=== PATIENT | male | born 1940 | race Caucasian/White ===

== ENCOUNTER 2024-11-23 16:05 | Inpatient (IN) | payer BC ==
[~2024-11-23] VITALS: Ht 175.3 cm; Wt 68.0 kg
[2024-11-23] MEDS ORDERED: EPOE40007 SQ (16:31)
[2024-11-23] MEDS ORDERED: ASCO500C18 GT (16:31)
[2024-11-23] MEDS ORDERED: LIDOCAINE PATCH 5% TD (16:31)
[2024-11-23] MEDS ORDERED: HEPA500034 SQ (16:31)
[2024-11-23] MEDS ORDERED: ZINC1CAP2 GT (16:31)
[2024-11-23] MEDS ORDERED: NA P133E RC (16:31)
[2024-11-23] MEDS ORDERED: PANT40TA49 GT (16:31)
[2024-11-23] MEDS ORDERED: ASPI-612 GT (16:31)
[2024-11-23] MEDS ORDERED: ALBU2.5V13 NEB (16:31)
[2024-11-23] MEDS ORDERED: MIDO5TAB5 GT (16:31)
[2024-11-23] MEDS ORDERED: MAGN400O6 GT (16:31)
[2024-11-23] MEDS ORDERED: FURO40TA5 GT (16:31)
[2024-11-23] MEDS ORDERED: ACET325C7 GT (16:31)
[2024-11-23] MEDS ORDERED: ONDA-104 GT (16:31)
[2024-11-23] MEDS ORDERED: LORA-259 GT (16:31)
[2024-11-23] MEDS ORDERED: ACET-2605 GT (16:31)
[2024-11-23] MEDS ORDERED: SENN8.6T19 GT (16:31)
[2024-11-23] MEDS ORDERED: BISA10SU61 RC (16:31)
[2024-11-23] MEDS ORDERED: MULT-213 GT (16:31)
[2024-11-23] MEDS ORDERED: GUAI100S9 GT (16:31)
[2024-11-23] MEDS ORDERED: AMOX125S56 GT (16:31)
[2024-11-23] MEDS ORDERED: CHOL500062 GT (16:31)
[2024-11-23] MEDS ORDERED: ATOR40TA GT (16:31)
[2024-11-23 16:33] LABS: BASOPHILS % (AUTO) 0.5 % (0.0-2.0); EOSINOPHILS # (AUTO) 0.1 K/uL (0.0-0.7); EOSINOPHILS % (AUTO) 1.3 % (0.0-7.0); HEMATOCRIT 23.7 % (36.7-47.1); LYMPHOCYTES # (AUTO) 0.3 K/uL (0.8-4.8); LYMPHOCYTES % (AUTO) 8.5 % (20.5-51.5); MEAN CORPUSCULAR HEMOGLOBIN 36.5 uug (23.8-33.4); MEAN CORPUSCULAR HGB CONC 34 g/dL (32.5-36.3); MONOCYTES # (AUTO) 0.2 K/uL (0.1-1.30); MONOCYTES % (AUTO) 5.9 % (0.0-11.0); NEUTROPHILS # (AUTO) 3.3 K/uL (1.8-8.9); NEUTROPHILS % (AUTO) 83.8 % (38.5-71.5); PLATELET COUNT (AUTO) 227 K/uL (152-348); RED CELL DISTRIBUTION WIDTH 25.6 % (12.1-16.2); WHITE BLOOD COUNT (AUTO) 3.9 K/uL (3.6-10.2)
[2024-11-23 16:36] LABS: DIFFERENTIAL COMMENT 1; RED BLOOD CELL COUNT(AUTO) 2.19 MIL/uL (4.06-5.63)
[2024-11-23 16:42] LABS: CALCIUM 8.7 mg/dL (8.5-10.1); CARBON DIOXIDE 29 mmol/L (21-32); CHLORIDE 97 mmol/L (98-107); CREATININE 2.3 mg/dL (0.6-1.3); GLUCOSE 130 mg/dL (74-106); POTASSIUM 4.1 mmol/L (3.5-5.1); SODIUM SERUM 136 mmol/L (136-145); UREA NITROGEN, BLOOD 59 mg/dL (7-18)
[2024-11-23 16:51] LABS: LACTIC ACID 3.6 mmol/L (0.4-2.0)
[2024-11-23 16:55] LABS: ALANINE AMINOTRANSFERASE 35 U/L (16-63); ALBUMIN 1.8 g/dL (3.4-5.0); ALKALINE PHOSPHATASE 257 U/L (50-136); ASPARTATE AMINOTRANSFERASE 89 U/L (15-37); BILIRUBIN,DIRECT 0.1 mg/dL (0.0-0.2); BILIRUBIN,TOTAL 0.3 mg/dL (0.2-1.0); NT-PRO BNP 5460 pg/mL (0-125); TOTAL PROTEIN, SERUM 6.5 g/dL (6.4-8.2)
[2024-11-23 17:51] LABS: ABG BASE EXCESS 4.4 mmol/L (-2.0-3.0); ABG HCO3 30.5 mmol/L (21.0-28.0); ABG PCO2 54.3 mmHg (35.0-48.0); ABG PH 7.367 (7.350-7.450); ABG PO2 366.3 mmHg (83.0-108.0); ABG SITE LEFT RADIAL; ABG TOTAL HEMOGLOBIN 8.7 G/dL (13.5-17.5); AaDO2 99.8 mmHg; MetHb 0.2 % (0.0-1.5); O2Hb 99.7 % (94.0-98.0); VT, ABG 362 mL
[2024-11-23 18:27] LABS: *BILIRUBIN,URIN NEGATIVE (NEGATIVE); *BLOOD, URINE NEGATIVE (NEGATIVE); *CLARITY,URINE CLEAR (CLEAR); *COLOR,URINE YELLOW (YELLOW); *KETONES,URINE NEGATIVE (NEGATIVE); *PROTEIN,URINE 2+ (NEGATIVE); *UROBILINOGEN,URINE 0.2 E.U./dl (NORMAL); LEUKOCYTE ESTERASE ,URINE NEGATIVE (NEGATIVE); NITRITE, URINE NEGATIVE (NEGATIVE); PH,URINE 5.5 (5.0-8.0); UGLUCOSE NEGATIVE (NEGATIVE)
[2024-11-23 18:30] LABS: RBC,URINE 0-3 /HPF (0-3); WBC,URINE 0-3 /HPF (0-3)
[2024-11-23] MEDS ORDERED: ALBUTEROL SULFATE 2.5 MG/3 ML NEBU NEB PRN (21:15)
[2024-11-23] MEDS ORDERED: IPRATROPIUM BROMIDE 0.5 MG/2.5 ML NEBU NEB PRN (21:15)
[2024-11-23] MEDS ORDERED: MAGNESIUM HYDROXIDE 30 ML LIQUID UDC PO PRN (21:15)
[2024-11-23] MEDS ORDERED: CEFEPIME HCL 1 G in IV DEXTROSE 5% 50 ML IV SCH (22:00)
[2024-11-23] MEDS ORDERED: CEFEPIME HCL 1 G VIAL ONE (22:54)
[2024-11-23 22:56] VITALS: O2SAT 97
[2024-11-23] MEDS: ENOXAPARIN SODIUM 30 MG/0.3 ML DISP.SYRIN SQ SCH (23:19)
[2024-11-23] MEDS: CEFEPIME HCL 1 G in IV DEXTROSE 5% 50 ML IV SCH (23:29)
[2024-11-23 23:30] VITALS: BP 142/81; TEMP 98.4; O2SAT 98
[2024-11-24] VITALS (12 sets, daily range): BP systolic 97–133; BP diastolic 37–71; TEMP 97.5–98; O2SAT 93–99
[2024-11-24] MEDS: JEVITY 1.2 1000 ML LIQUID GT PRN ×2 (03:00→13:12)
[2024-11-24] MEDS ORDERED: DEXTROSE 50% 50 ML DISP.SYRIN IV PRN (06:00)
[2024-11-24] MEDS: BLOOD SUGAR DIAGNOSTIC 1 EACH STRIP VI SCH (06:40)
[2024-11-24] MEDS: PANTOPRAZOLE SODIUM 40 MG VIAL IV SCH (08:45)
[2024-11-24] MEDS ORDERED: AMOX1TAB16 GT (09:29)
[2024-11-24] MEDS ORDERED: PANT40SU2 GT (09:40)
[2024-11-24 09:57] LABS: BASOPHILS % (AUTO) 0.4 % (0.0-2.0); EOSINOPHILS % (AUTO) 0.6 % (0.0-7.0); HEMATOCRIT 22.6 % (36.7-47.1); HEMOGLOBIN 7.9 g/dL (12.5-16.3); LYMPHOCYTES # (AUTO) 0.5 K/uL (0.8-4.8); LYMPHOCYTES % (AUTO) 9.6 % (20.5-51.5); MEAN CORPUSCULAR HEMOGLOBIN 37.4 uug (23.8-33.4); MEAN CORPUSCULAR HGB CONC 35 g/dL (32.5-36.3); MEAN CORPUSCULAR VOLUME 107.2 fL (73.0-96.2); MONOCYTES # (AUTO) 0.3 K/uL (0.1-1.30); MONOCYTES % (AUTO) 6.7 % (0.0-11.0); NEUTROPHILS # (AUTO) 4.2 K/uL (1.8-8.9); NEUTROPHILS % (AUTO) 82.7 % (38.5-71.5); PLATELET COUNT (AUTO) 207 K/uL (152-348); RED CELL DISTRIBUTION WIDTH 26.4 % (12.1-16.2); WHITE BLOOD COUNT (AUTO) 5.1 K/uL (3.6-10.2)
[2024-11-24 10:06] LABS: DIFFERENTIAL COMMENT 1; RED BLOOD CELL COUNT(AUTO) 2.11 MIL/uL (4.06-5.63)
[2024-11-24] MEDS ORDERED: EPOETIN ALFA 10,000 UNITS/ML VIAL SQ SCH ×2 (10:15→14:00)
[2024-11-24] MEDS ORDERED: SENNOSIDES 1 TABLET GT PRN (10:15)
[2024-11-24 11:03] LABS: ALANINE AMINOTRANSFERASE 36 U/L (16-63); ALBUMIN 1.8 g/dL (3.4-5.0); ALKALINE PHOSPHATASE 227 U/L (50-136); ASPARTATE AMINOTRANSFERASE 73 U/L (15-37); BILIRUBIN,DIRECT 0.2 mg/dL (0.0-0.2); BILIRUBIN,TOTAL 0.3 mg/dL (0.2-1.0); CALCIUM 8.3 mg/dL (8.5-10.1); CARBON DIOXIDE 28 mmol/L (21-32); CHLORIDE 97 mmol/L (98-107); CREATININE 2.3 mg/dL (0.6-1.3); GLUCOSE 76 mg/dL (74-106); MAGNESIUM 2.2 mg/dL (1.8-2.4); NT-PRO BNP 4903 pg/mL (0-125); PHOSPHOROUS 4.5 mg/dL (2.5-4.9); SODIUM SERUM 137 mmol/L (136-145); TOTAL PROTEIN, SERUM 6.3 g/dL (6.4-8.2); UREA NITROGEN, BLOOD 60 mg/dL (7-18)
[2024-11-24] MEDS ORDERED: JEVITY 1.2 1000 ML LIQUID GT PRN (11:15)
[2024-11-24] MEDS: VANCOMYCIN IV 1,000 MG in IV DEXTROSE 5% 250 ML IV SCH (11:49)
[2024-11-24] MEDS: LIDOCAINE 5% PATCH TD SCH (12:07)
[2024-11-24] MEDS: EPOETIN ALFA-EPBX 10,000 UNIT/ML VIAL SQ SCH (13:53)
[2024-11-24] MEDS: CEFEPIME HCL 2 GM in IV DEXTROSE 5% 100 ML IV SCH (14:13)
[2024-11-24] MEDS: IPRATROPIUM BROMIDE 0.5 MG/2.5 ML NEBU NEB SCH (14:53)
[2024-11-24] MEDS: ALBUTEROL SULFATE 2.5 MG/3 ML NEBU NEB SCH (14:53)
[2024-11-24] MEDS: MIDODRINE HCL 5 MG TABLET GT SCH (15:01)
[2024-11-24] MEDS ORDERED: ENOXAPARIN SODIUM 30 MG/0.3 ML DISP.SYRIN SQ SCH ×2 (21:00)
[2024-11-24] MEDS: ACETAMINOPHEN 325 MG TABLET PO PRN (21:12)
[2024-11-24] MEDS: ONDANSETRON 4 MG/2 ML VIAL IV PRN (21:18)
[2024-11-24] MEDS: ATORVASTATIN 40 MG TABLET GT SCH (21:35)
[2024-11-25] VITALS (13 sets, daily range): BP systolic 90–146; BP diastolic 52–73; TEMP 97.4–98.6; O2SAT 92–99
[2024-11-25] MEDS ORDERED: ASPIRIN 325 MG TABLET GT SCH ×2 (09:00)
[2024-11-25 09:22] LABS: ABG BASE EXCESS 2.7 mmol/L (-2.0-3.0); ABG HCO3 27.4 mmol/L (21.0-28.0); ABG PCO2 42.6 mmHg (35.0-48.0); ABG PH 7.426 (7.350-7.450); ABG PO2 57.2 mmHg (83.0-108.0); ABG SITE LEFT RADIAL; ABG TOTAL HEMOGLOBIN 8.8 G/dL (13.5-17.5); AaDO2 90.4 mmHg; COHb 0.1 % (0.5-1.5); MetHb 0.3 % (0.0-1.5); O2Hb 87.3 % (94.0-98.0)
[2024-11-25] MEDS: PANTOPRAZOLE ORAL SUSPENSION 40 MG SUSPDR.PKT GT SCH (10:20)
[2024-11-25] MEDS: CHOLECALCIFEROL 1,000 UNIT TABLET GT SCH (10:21)
[2024-11-25] MEDS: ASCORBIC ACID 500 MG TABLET GT SCH (10:21)
[2024-11-25] MEDS: MULTIVIT, IRON, MIN NO. 8, FA TABLET GT SCH (10:22)
[2024-11-25] MEDS: ALBUMIN HUMAN 25% 50 ML IV ONE (11:45)
[2024-11-25] MEDS ORDERED: GLUCERNA 1.2 1000ML LIQUID GT PRN (12:00)
[2024-11-25 14:01] LABS: BASOPHILS % (AUTO) 0.8 % (0.0-2.0); EOSINOPHILS % (AUTO) 1.5 % (0.0-7.0); HEMATOCRIT 21.7 % (36.7-47.1); LYMPHOCYTES # (AUTO) 0.4 K/uL (0.8-4.8); LYMPHOCYTES % (AUTO) 11.2 % (20.5-51.5); MEAN CORPUSCULAR HEMOGLOBIN 36.6 uug (23.8-33.4); MEAN CORPUSCULAR HGB CONC 34 g/dL (32.5-36.3); MEAN CORPUSCULAR VOLUME 108.8 fL (73.0-96.2); MONOCYTES # (AUTO) 0.3 K/uL (0.1-1.30); MONOCYTES % (AUTO) 9.8 % (0.0-11.0); NEUTROPHILS # (AUTO) 2.5 K/uL (1.8-8.9); NEUTROPHILS % (AUTO) 76.7 % (38.5-71.5); PLATELET COUNT (AUTO) 213 K/uL (152-348); RED CELL DISTRIBUTION WIDTH 26.3 % (12.1-16.2); WHITE BLOOD COUNT (AUTO) 3.3 K/uL (3.6-10.2)
[2024-11-25 14:03] LABS: DIFFERENTIAL COMMENT 1; HEMOGLOBIN 7.3 g/dL (12.5-16.3)
[2024-11-25 14:13] LABS: ALANINE AMINOTRANSFERASE 31 U/L (16-63); ALBUMIN 1.9 g/dL (3.4-5.0); ALKALINE PHOSPHATASE 194 U/L (50-136); ASPARTATE AMINOTRANSFERASE 70 U/L (15-37); BILIRUBIN,DIRECT 0.2 mg/dL (0.0-0.2); BILIRUBIN,TOTAL 0.5 mg/dL (0.2-1.0); CALCIUM 8.9 mg/dL (8.5-10.1); CARBON DIOXIDE 31 mmol/L (21-32); CHLORIDE 100 mmol/L (98-107); CREATINE KINASE, TOTAL < 7 U/L (39-308); CREATININE 2.2 mg/dL (0.6-1.3); GLUCOSE 79 mg/dL (74-106); MAGNESIUM 2.2 mg/dL (1.8-2.4); PHOSPHOROUS 4.7 mg/dL (2.5-4.9); POTASSIUM 4.2 mmol/L (3.5-5.1); SODIUM SERUM 138 mmol/L (136-145); TOTAL PROTEIN, SERUM 6.2 g/dL (6.4-8.2); UREA NITROGEN, BLOOD 55 mg/dL (7-18); VANCOMYCIN,RANDOM 14.1 ug/mL (20.0-30.0)
[2024-11-25 14:25] LABS: LACTIC ACID 2.5 mmol/L (0.4-2.0)
[2024-11-25] MEDS: SOD FERRIC GLUC COMPLX/SUCROSE 125 MG in IV NORMAL SALINE 100 ML IV SCH (14:32)
[2024-11-25] MEDS: VANCOMYCIN IV 500 MG in IV DEXTROSE 5% 100 ML IV ONE (15:12)
[2024-11-25] MEDS: GLUCERNA 1.2 1000ML LIQUID GT PRN (15:45)
[2024-11-25 17:38] LABS: HEMATOCRIT 20.9 % (36.7-47.1); HEMOGLOBIN 6.9 g/dL (12.5-16.3)
[2024-11-25 17:56] LABS: THYROID STIMULATING HORMONE 10.715 mIU/mL (0.358-3.740)
[2024-11-25 18:13] LABS: *RHEUMATOID FACTOR SCREEN NEGATIVE (NEGATIVE)
[2024-11-25] MEDS: PANTOPRAZOLE SODIUM 40 MG VIAL IV SCH (18:58)
[2024-11-26] VITALS (20 sets, daily range): BP systolic 91–117; BP diastolic 45–66; TEMP 96.6–98.4; O2SAT 92–99
[2024-11-26 07:25] LABS: BASOPHILS % (AUTO) 0.6 % (0.0-2.0); EOSINOPHILS % (AUTO) 1.4 % (0.0-7.0); HEMATOCRIT 27.4 % (36.7-47.1); HEMOGLOBIN 9.2 g/dL (12.5-16.3); LYMPHOCYTES # (AUTO) 0.4 K/uL (0.8-4.8); LYMPHOCYTES % (AUTO) 11.4 % (20.5-51.5); MEAN CORPUSCULAR HEMOGLOBIN 35.9 uug (23.8-33.4); MEAN CORPUSCULAR HGB CONC 34 g/dL (32.5-36.3); MEAN CORPUSCULAR VOLUME 106.3 fL (73.0-96.2); MONOCYTES # (AUTO) 0.4 K/uL (0.1-1.30); MONOCYTES % (AUTO) 11.1 % (0.0-11.0); NEUTROPHILS # (AUTO) 2.7 K/uL (1.8-8.9); NEUTROPHILS % (AUTO) 75.5 % (38.5-71.5); PLATELET COUNT (AUTO) 225 K/uL (152-348); RED BLOOD CELL COUNT(AUTO) 2.57 MIL/uL (4.06-5.63); RED CELL DISTRIBUTION WIDTH 24.4 % (12.1-16.2); WHITE BLOOD COUNT (AUTO) 3.6 K/uL (3.6-10.2)
[2024-11-26 07:40] LABS: DIFFERENTIAL COMMENT 1
[2024-11-26 08:14] LABS: CALCIUM 9.1 mg/dL (8.5-10.1); CARBON DIOXIDE 29 mmol/L (21-32); CHLORIDE 100 mmol/L (98-107); CREATININE 2.1 mg/dL (0.6-1.3); GLUCOSE 82 mg/dL (74-106); POTASSIUM 4.3 mmol/L (3.5-5.1); SODIUM SERUM 138 mmol/L (136-145); UREA NITROGEN, BLOOD 53 mg/dL (7-18)
[2024-11-26] MEDS: ALBUMIN HUMAN 25% 100 ML IV ONE (08:43)
[2024-11-26] MEDS: VANCOMYCIN HCL 750 MG in IV DEXTROSE 5% 250 ML IV ONE (08:45)
[2024-11-26 09:07] LABS: PTH, INTACT 39 pg/mL (15-65)
[2024-11-26 09:57] LABS: ANISOCYTOSIS 3+; BAND % (MANUAL) 4 % (0-10); LYMPHOCYTES % (MANUAL) 9 % (20-40); METAMYELOCYTES % 2 % (0-1); MONOCYTES % (MANUAL) 11 % (2-10); MYELOCYTES % 1 % (0-0); NEUTROPHILS % (MANUAL) 73 % (42-75); PLATELET ESTIMATE ADEQUATE
[2024-11-26 10:01] LABS: OVALOCYTES 1+
[2024-11-26] MEDS: FUROSEMIDE 20 MG/2 ML VIAL IV SCH (11:42)
[2024-11-26] MEDS: MEDIHONEY= THERAHONEY 1.5 OZ TUBE TOP SCH (16:13)
[2024-11-26 20:04] LABS: PROTEIN, BODY FLUID 2.2 G/DL
[2024-11-26 20:11] LABS: TOTAL VOLUME,BODY FLUID 1020 mL; WBC, BODY FLUID 60 /cu. mm (0-200/cu.mm)
[2024-11-26 21:10] LABS: MONOCYTES,BODY FLUID 8 %
[2024-11-27] VITALS (10 sets, daily range): BP systolic 90–126; BP diastolic 50–66; TEMP 97–98.2; O2SAT 95–98
[2024-11-27 03:11] LABS: *TESTOSTERONE, SERUM 56 ng/dL (264-916)
[2024-11-27 06:11] LABS: HEPATITIS B SURFACE AB, QUAL Non Reactive (.); HEPATITIS B SURFACE AG Negative (Negative); HEPATITIS C VIRUS ANTIBODY Non Reactive (Non Reactive)
[2024-11-27 07:07] LABS: FOLATE (FOLIC ACID), SERUM 4.5 ng/mL (>3.0)
[2024-11-27 07:59] LABS: BASOPHILS % (AUTO) 0.6 % (0.0-2.0); EOSINOPHILS # (AUTO) 0.1 K/uL (0.0-0.7); EOSINOPHILS % (AUTO) 2.5 % (0.0-7.0); HEMATOCRIT 30.1 % (36.7-47.1); HEMOGLOBIN 10.4 g/dL (12.5-16.3); LYMPHOCYTES # (AUTO) 0.4 K/uL (0.8-4.8); LYMPHOCYTES % (AUTO) 16.7 % (20.5-51.5); MEAN CORPUSCULAR HGB CONC 35 g/dL (32.5-36.3); MEAN CORPUSCULAR VOLUME 104.4 fL (73.0-96.2); MONOCYTES # (AUTO) 0.4 K/uL (0.1-1.30); MONOCYTES % (AUTO) 16.8 % (0.0-11.0); NEUTROPHILS # (AUTO) 1.5 K/uL (1.8-8.9); NEUTROPHILS % (AUTO) 63.4 % (38.5-71.5); PLATELET COUNT (AUTO) 217 K/uL (152-348); RED BLOOD CELL COUNT(AUTO) 2.89 MIL/uL (4.06-5.63); WHITE BLOOD COUNT (AUTO) 2.3 K/uL (3.6-10.2)
[2024-11-27 08:00] LABS: DIFFERENTIAL COMMENT 1
[2024-11-27 08:03] LABS: CALCIUM 9.1 mg/dL (8.5-10.1); CARBON DIOXIDE 31 mmol/L (21-32); CHLORIDE 100 mmol/L (98-107); CREATININE 2.1 mg/dL (0.6-1.3); GLUCOSE 68 mg/dL (74-106); SODIUM SERUM 138 mmol/L (136-145); UREA NITROGEN, BLOOD 53 mg/dL (7-18)
[2024-11-27 08:09] LABS: *IMMUNOGLOBULIN G, SERUM 1081 mg/dL (603-1613); AFP, TUMOR MARKER 5.3 ng/mL (0.0-6.4); CARCINOEMBRYONIC AG (CEA) 1.9 ng/mL (0.0-4.7); IMMUNOGLOBULIN A, SERUM 595 mg/dL (61-437); IMMUNOGLOBULIN M, SERUM 317 mg/dL (15-143)
[2024-11-27 08:13] LABS: POTASSIUM 4.1 mmol/L (3.5-5.1)
[2024-11-27 11:10] LABS: *ANTI-SCLERODERMA-70 AB 0.2 AI (0.0-0.9); *RNP ANTIBODIES 6.6 AI (0.0-0.9); *SJOGREN'S ANTI-SS-A <0.2 AI (0.0-0.9); *SJOGREN'S ANTI-SS-B <0.2 AI (0.0-0.9); *SMITH ANTIBODIES <0.2 AI (0.0-0.9); ANTI-DNA(DS) AB, QN 5 IU/mL (0-9); ANTI-NUCLEAR AB DIRECT Positive (Negative)
[2024-11-27 14:42] LABS: ANISOCYTOSIS 2+; BAND % (MANUAL) 3 % (0-10); EOSINOPHILS % (MANUAL) 2 % (0-8); LYMPHOCYTES % (MANUAL) 19 % (20-40); MONOCYTES % (MANUAL) 19 % (2-10); NEUTROPHILS % (MANUAL) 57 % (42-75); PLATELET ESTIMATE ADEQUATE
[2024-11-27] MEDS: VANCOMYCIN HCL 750 MG in IV DEXTROSE 5% 250 ML IV ONE (17:53)
[2024-11-27 18:13] LABS: PROTEIN, BODY FLUID 2.3 G/DL
[2024-11-27 18:29] LABS: TOTAL VOLUME,BODY FLUID 1000 mL; WBC, BODY FLUID 143 /cu. mm (0-200/cu.mm)
[2024-11-27 19:46] LABS: MONOCYTES,BODY FLUID 4 %
[2024-11-28] VITALS (10 sets, daily range): BP systolic 98–113; BP diastolic 52–60; TEMP 96.9–97.7; O2SAT 95–99
[2024-11-28 06:47] LABS: BASOPHILS % (AUTO) 0.7 % (0.0-2.0); EOSINOPHILS % (AUTO) 1.6 % (0.0-7.0); HEMATOCRIT 29.8 % (36.7-47.1); LYMPHOCYTES # (AUTO) 0.5 K/uL (0.8-4.8); LYMPHOCYTES % (AUTO) 17.6 % (20.5-51.5); MEAN CORPUSCULAR HGB CONC 34 g/dL (32.5-36.3); MEAN CORPUSCULAR VOLUME 107.1 fL (73.0-96.2); MONOCYTES # (AUTO) 0.3 K/uL (0.1-1.30); MONOCYTES % (AUTO) 13.2 % (0.0-11.0); NEUTROPHILS # (AUTO) 1.8 K/uL (1.8-8.9); NEUTROPHILS % (AUTO) 66.9 % (38.5-71.5); PLATELET COUNT (AUTO) 227 K/uL (152-348); RED BLOOD CELL COUNT(AUTO) 2.79 MIL/uL (4.06-5.63); RED CELL DISTRIBUTION WIDTH 24.6 % (12.1-16.2); WHITE BLOOD COUNT (AUTO) 2.6 K/uL (3.6-10.2)
[2024-11-28 07:05] LABS: CALCIUM 8.6 mg/dL (8.5-10.1); CARBON DIOXIDE 29 mmol/L (21-32); CHLORIDE 100 mmol/L (98-107); CREATININE 2.2 mg/dL (0.6-1.3); GLUCOSE 104 mg/dL (74-106); POTASSIUM 4.1 mmol/L (3.5-5.1); SODIUM SERUM 137 mmol/L (136-145); UREA NITROGEN, BLOOD 56 mg/dL (7-18)
[2024-11-28 07:11] LABS: DIFFERENTIAL COMMENT 1
[2024-11-28 08:03] LABS: ANISOCYTOSIS 3+; BAND % (MANUAL) 4 % (0-10); EOSINOPHILS % (MANUAL) 1 % (0-8); LYMPHOCYTES % (MANUAL) 18 % (20-40); METAMYELOCYTES % 1 % (0-1); MONOCYTES % (MANUAL) 17 % (2-10); MYELOCYTES % 2 % (0-0); NEUTROPHILS % (MANUAL) 57 % (42-75)
[2024-11-28] MEDS: REMEDY ESSENTIAL ZINC PASTE 113 GM TP PRN (10:12)
[2024-11-28] MEDS: MIDODRINE HCL 5 MG TABLET PO ONE (16:04)
[2024-11-28 18:40] LABS: HIV-1 p24 ANTIGEN NON REACTIVE (NONREACTIVE); HIV-1/2 ANTIBODY NON REACTIVE (NONREACTIVE)
[2024-11-29] VITALS (11 sets, daily range): BP systolic 113–146; BP diastolic 59–71; TEMP 96.5–98.6; O2SAT 93–99
[2024-11-29 06:51] LABS: BASOPHILS % (AUTO) 0.8 % (0.0-2.0); EOSINOPHILS # (AUTO) 0.1 K/uL (0.0-0.7); EOSINOPHILS % (AUTO) 2.5 % (0.0-7.0); HEMATOCRIT 27.3 % (36.7-47.1); HEMOGLOBIN 9.3 g/dL (12.5-16.3); LYMPHOCYTES # (AUTO) 0.3 K/uL (0.8-4.8); LYMPHOCYTES % (AUTO) 13.3 % (20.5-51.5); MEAN CORPUSCULAR HGB CONC 34 g/dL (32.5-36.3); MEAN CORPUSCULAR VOLUME 105.9 fL (73.0-96.2); MONOCYTES # (AUTO) 0.4 K/uL (0.1-1.30); MONOCYTES % (AUTO) 17.7 % (0.0-11.0); NEUTROPHILS # (AUTO) 1.6 K/uL (1.8-8.9); NEUTROPHILS % (AUTO) 65.7 % (38.5-71.5); PLATELET COUNT (AUTO) 225 K/uL (152-348); RED BLOOD CELL COUNT(AUTO) 2.58 MIL/uL (4.06-5.63); RED CELL DISTRIBUTION WIDTH 23.3 % (12.1-16.2); WHITE BLOOD COUNT (AUTO) 2.4 K/uL (3.6-10.2)
[2024-11-29 07:10] LABS: CALCIUM 8.9 mg/dL (8.5-10.1); CARBON DIOXIDE 30 mmol/L (21-32); CHLORIDE 100 mmol/L (98-107); CREATININE 2.5 mg/dL (0.6-1.3); GLUCOSE 93 mg/dL (74-106); POTASSIUM 3.9 mmol/L (3.5-5.1); SODIUM SERUM 137 mmol/L (136-145); UREA NITROGEN, BLOOD 53 mg/dL (7-18)
[2024-11-29 07:15] LABS: DIFFERENTIAL COMMENT 1
[2024-11-29 09:37] LABS: EOSINOPHILS % (MANUAL) 4 % (0-8); LYMPHOCYTES % (MANUAL) 13 % (20-40); MONOCYTES % (MANUAL) 17 % (2-10); NEUTROPHILS % (MANUAL) 66 % (42-75); PLATELET ESTIMATE ADEQUATE
[2024-11-29 09:38] LABS: ANISOCYTOSIS 3+
[2024-11-29] MEDS: FUROSEMIDE 20 MG/2 ML VIAL IV SCH (13:03)
[2024-11-29] MEDS: MIDODRINE HCL 5 MG TABLET GT SCH (13:04)
[2024-11-30] VITALS (12 sets, daily range): BP systolic 102–129; BP diastolic 49–64; TEMP 97.6–98.6; O2SAT 93–100
[2024-11-30 09:00] LABS: BASOPHILS % (AUTO) 0.9 % (0.0-2.0); EOSINOPHILS # (AUTO) 0.1 K/uL (0.0-0.7); EOSINOPHILS % (AUTO) 3.7 % (0.0-7.0); HEMATOCRIT 26.6 % (36.7-47.1); HEMOGLOBIN 9.1 g/dL (12.5-16.3); LYMPHOCYTES # (AUTO) 0.3 K/uL (0.8-4.8); LYMPHOCYTES % (AUTO) 8.3 % (20.5-51.5); MEAN CORPUSCULAR HEMOGLOBIN 36.3 uug (23.8-33.4); MEAN CORPUSCULAR HGB CONC 34 g/dL (32.5-36.3); MEAN CORPUSCULAR VOLUME 106.9 fL (73.0-96.2); MONOCYTES # (AUTO) 0.6 K/uL (0.1-1.30); MONOCYTES % (AUTO) 16.6 % (0.0-11.0); NEUTROPHILS # (AUTO) 2.5 K/uL (1.8-8.9); NEUTROPHILS % (AUTO) 70.5 % (38.5-71.5); PLATELET COUNT (AUTO) 198 K/uL (152-348); RED CELL DISTRIBUTION WIDTH 23.9 % (12.1-16.2); WHITE BLOOD COUNT (AUTO) 3.5 K/uL (3.6-10.2)
[2024-11-30 09:16] LABS: CALCIUM 8.8 mg/dL (8.5-10.1); CARBON DIOXIDE 30 mmol/L (21-32); CHLORIDE 98 mmol/L (98-107); CREATININE 2.5 mg/dL (0.6-1.3); GLUCOSE 94 mg/dL (74-106); POTASSIUM 3.7 mmol/L (3.5-5.1); SODIUM SERUM 134 mmol/L (136-145); UREA NITROGEN, BLOOD 58 mg/dL (7-18); VANCOMYCIN,RANDOM 18.7 ug/mL (20.0-30.0)
[2024-11-30 09:17] LABS: RED BLOOD CELL COUNT(AUTO) 2.49 MIL/uL (4.06-5.63)
[2024-11-30 09:18] LABS: DIFFERENTIAL COMMENT 1
[2024-11-30] MEDS: FUROSEMIDE 40 MG TABLET PO SCH (09:54)
[2024-11-30 10:48] LABS: EOSINOPHILS % (MANUAL) 4 % (0-8); LYMPHOCYTES % (MANUAL) 8 % (20-40); MONOCYTES % (MANUAL) 17 % (2-10); NEUTROPHILS % (MANUAL) 71 % (42-75); PLATELET ESTIMATE ADEQUATE
[2024-11-30 10:49] LABS: ANISOCYTOSIS 2+
[2024-11-30] MEDS: VANCOMYCIN HCL 750 MG in IV DEXTROSE 5% 250 ML IV ONE (11:33)
[2024-12-01] VITALS (11 sets, daily range): BP systolic 100–141; BP diastolic 50–57; TEMP 98.2–98.6; O2SAT 93–99
[2024-12-01 07:07] LABS: BASOPHILS % (AUTO) 1.1 % (0.0-2.0); EOSINOPHILS # (AUTO) 0.1 K/uL (0.0-0.7); EOSINOPHILS % (AUTO) 3.6 % (0.0-7.0); HEMATOCRIT 29.9 % (36.7-47.1); HEMOGLOBIN 10.2 g/dL (12.5-16.3); LYMPHOCYTES # (AUTO) 0.5 K/uL (0.8-4.8); MEAN CORPUSCULAR HEMOGLOBIN 36.6 uug (23.8-33.4); MEAN CORPUSCULAR HGB CONC 34 g/dL (32.5-36.3); MEAN CORPUSCULAR VOLUME 106.8 fL (73.0-96.2); MONOCYTES # (AUTO) 0.4 K/uL (0.1-1.30); MONOCYTES % (AUTO) 13.2 % (0.0-11.0); NEUTROPHILS # (AUTO) 1.9 K/uL (1.8-8.9); NEUTROPHILS % (AUTO) 66.1 % (38.5-71.5); PLATELET COUNT (AUTO) 182 K/uL (152-348); RED CELL DISTRIBUTION WIDTH 23.6 % (12.1-16.2); WHITE BLOOD COUNT (AUTO) 2.8 K/uL (3.6-10.2)
[2024-12-01 07:17] LABS: DIFFERENTIAL COMMENT 1
[2024-12-01 07:27] LABS: CALCIUM 9.3 mg/dL (8.5-10.1); CARBON DIOXIDE 30 mmol/L (21-32); CHLORIDE 100 mmol/L (98-107); CREATININE 2.7 mg/dL (0.6-1.3); GLUCOSE 85 mg/dL (74-106); SODIUM SERUM 135 mmol/L (136-145); UREA NITROGEN, BLOOD 59 mg/dL (7-18); VANCOMYCIN,RANDOM 25.2 ug/mL (20.0-30.0)
[2024-12-01 07:43] LABS: POTASSIUM 5.4 mmol/L (3.5-5.1)
[2024-12-01 08:12] LABS: MAGNESIUM 2.3 mg/dL (1.8-2.4); PHOSPHOROUS 5.3 mg/dL (2.5-4.9)
[2024-12-01] MEDS ORDERED: FUROSEMIDE 40 MG TABLET PO SCH (09:00)
[2024-12-01] MEDS: FUROSEMIDE 20 MG TABLET PO SCH (09:00)
[2024-12-01 16:07] LABS: CALCIUM 8.5 mg/dL (8.5-10.1); CARBON DIOXIDE 28 mmol/L (21-32); CHLORIDE 99 mmol/L (98-107); CREATININE 2.6 mg/dL (0.6-1.3); GLUCOSE 129 mg/dL (74-106); POTASSIUM 3.4 mmol/L (3.5-5.1); SODIUM SERUM 134 mmol/L (136-145); UREA NITROGEN, BLOOD 55 mg/dL (7-18)
[2024-12-02] VITALS (10 sets, daily range): BP systolic 110–135; BP diastolic 56–74; TEMP 97.6–98.4; O2SAT 94–99
[2024-12-02 07:07] LABS: A/G RATIO 0.8 (0.7-1.7); ALBUMIN 2.5 g/dL (2.9-4.4); ALPHA-1-GLOBULIN 0.3 g/dL (0.0-0.4); ALPHA-2-GLOBULIN 0.6 g/dL (0.4-1.0); BETA GLOBULIN 0.9 g/dL (0.7-1.3); GAMMA GLOBULIN 1.2 g/dL (0.4-1.8); M-SPIKE 0.5 g/dL (Not Observed); PROTEIN, TOTAL 5.5 g/dL (6.0-8.5)
[2024-12-02 07:14] LABS: BASOPHILS % (AUTO) 0.7 % (0.0-2.0); EOSINOPHILS # (AUTO) 0.2 K/uL (0.0-0.7); EOSINOPHILS % (AUTO) 3.5 % (0.0-7.0); HEMATOCRIT 31.5 % (36.7-47.1); HEMOGLOBIN 10.9 g/dL (12.5-16.3); LYMPHOCYTES # (AUTO) 0.4 K/uL (0.8-4.8); LYMPHOCYTES % (AUTO) 8.4 % (20.5-51.5); MEAN CORPUSCULAR HEMOGLOBIN 37.7 uug (23.8-33.4); MEAN CORPUSCULAR HGB CONC 35 g/dL (32.5-36.3); MEAN CORPUSCULAR VOLUME 108.9 fL (73.0-96.2); MONOCYTES # (AUTO) 0.5 K/uL (0.1-1.30); MONOCYTES % (AUTO) 10.2 % (0.0-11.0); NEUTROPHILS # (AUTO) 3.6 K/uL (1.8-8.9); NEUTROPHILS % (AUTO) 77.2 % (38.5-71.5); PLATELET COUNT (AUTO) 186 K/uL (152-348); RED CELL DISTRIBUTION WIDTH 23.8 % (12.1-16.2); WHITE BLOOD COUNT (AUTO) 4.7 K/uL (3.6-10.2)
[2024-12-02 07:20] LABS: DIFFERENTIAL COMMENT 1
[2024-12-02 07:21] LABS: ALANINE AMINOTRANSFERASE 27 U/L (16-63); ALBUMIN 1.5 g/dL (3.4-5.0); ALKALINE PHOSPHATASE 185 U/L (50-136); ASPARTATE AMINOTRANSFERASE 75 U/L (15-37); BILIRUBIN,TOTAL 0.4 mg/dL (0.2-1.0); CALCIUM 8.9 mg/dL (8.5-10.1); CARBON DIOXIDE 29 mmol/L (21-32); CHLORIDE 100 mmol/L (98-107); CREATINE KINASE, TOTAL 58 U/L (39-308); CREATININE 2.7 mg/dL (0.6-1.3); GLUCOSE 100 mg/dL (74-106); MAGNESIUM 2.4 mg/dL (1.8-2.4); PHOSPHOROUS 5.3 mg/dL (2.5-4.9); POTASSIUM 4.6 mmol/L (3.5-5.1); SODIUM SERUM 137 mmol/L (136-145); TOTAL PROTEIN, SERUM 6.1 g/dL (6.4-8.2); UREA NITROGEN, BLOOD 57 mg/dL (7-18)
[2024-12-02] MEDS: FUROSEMIDE 20 MG/2 ML VIAL IV SCH (09:37)
[2024-12-03] VITALS (9 sets, daily range): BP systolic 97–119; BP diastolic 53–66; TEMP 95.9–98; O2SAT 93–99
[2024-12-03 15:07] LABS: A/G RATIO 0.8 (0.7-1.7); ALBUMIN 2.5 g/dL (2.9-4.4); ALPHA-1-GLOBULIN 0.3 g/dL (0.0-0.4); ALPHA-2-GLOBULIN 0.6 g/dL (0.4-1.0); BETA GLOBULIN 0.9 g/dL (0.7-1.3); GAMMA GLOBULIN 1.5 g/dL (0.4-1.8); GLOBULIN, TOTAL 3.3 g/dL (2.2-3.9); M-SPIKE 0.7 g/dL (Not Observed); PROTEIN, TOTAL 5.8 g/dL (6.0-8.5)
[2024-12-03 15:44] LABS: BASOPHILS % (AUTO) 0.2 % (0.0-2.0); EOSINOPHILS # (AUTO) 0.1 K/uL (0.0-0.7); EOSINOPHILS % (AUTO) 2.8 % (0.0-7.0); HEMATOCRIT 27.4 % (36.7-47.1); HEMOGLOBIN 9.2 g/dL (12.5-16.3); LYMPHOCYTES # (AUTO) 0.4 K/uL (0.8-4.8); LYMPHOCYTES % (AUTO) 7.8 % (20.5-51.5); MEAN CORPUSCULAR HEMOGLOBIN 36.6 uug (23.8-33.4); MEAN CORPUSCULAR HGB CONC 34 g/dL (32.5-36.3); MEAN CORPUSCULAR VOLUME 109.4 fL (73.0-96.2); MONOCYTES # (AUTO) 0.5 K/uL (0.1-1.30); MONOCYTES % (AUTO) 10.5 % (0.0-11.0); NEUTROPHILS % (AUTO) 78.7 % (38.5-71.5); PLATELET COUNT (AUTO) 141 K/uL (152-348); RED CELL DISTRIBUTION WIDTH 23.3 % (12.1-16.2); WHITE BLOOD COUNT (AUTO) 5.1 K/uL (3.6-10.2)
[2024-12-03 15:53] LABS: DIFFERENTIAL COMMENT 1
[2024-12-04] VITALS (11 sets, daily range): BP systolic 113–126; BP diastolic 53–63; TEMP 92.5–98; O2SAT 93–99
[2024-12-04 06:45] LABS: BASOPHILS % (AUTO) 0.8 % (0.0-2.0); EOSINOPHILS # (AUTO) 0.2 K/uL (0.0-0.7); EOSINOPHILS % (AUTO) 2.8 % (0.0-7.0); HEMATOCRIT 29.5 % (36.7-47.1); LYMPHOCYTES # (AUTO) 0.3 K/uL (0.8-4.8); LYMPHOCYTES % (AUTO) 5.8 % (20.5-51.5); MEAN CORPUSCULAR HEMOGLOBIN 36.3 uug (23.8-33.4); MEAN CORPUSCULAR HGB CONC 34 g/dL (32.5-36.3); MONOCYTES # (AUTO) 0.5 K/uL (0.1-1.30); MONOCYTES % (AUTO) 9.6 % (0.0-11.0); NEUTROPHILS # (AUTO) 4.6 K/uL (1.8-8.9); PLATELET COUNT (AUTO) 189 K/uL (152-348); RED BLOOD CELL COUNT(AUTO) 2.76 MIL/uL (4.06-5.63); RED CELL DISTRIBUTION WIDTH 23.1 % (12.1-16.2); WHITE BLOOD COUNT (AUTO) 5.7 K/uL (3.6-10.2)
[2024-12-04 06:58] LABS: CALCIUM 9.3 mg/dL (8.5-10.1); CARBON DIOXIDE 31 mmol/L (21-32); CHLORIDE 99 mmol/L (98-107); CREATININE 3.1 mg/dL (0.6-1.3); GLUCOSE 116 mg/dL (74-106); MAGNESIUM 2.3 mg/dL (1.8-2.4); PHOSPHOROUS 5.5 mg/dL (2.5-4.9); POTASSIUM 3.7 mmol/L (3.5-5.1); SODIUM SERUM 137 mmol/L (136-145); UREA NITROGEN, BLOOD 65 mg/dL (7-18)
[2024-12-04 07:01] LABS: DIFFERENTIAL COMMENT 1
[2024-12-04 08:38] LABS: EOSINOPHILS % (MANUAL) 3 % (0-8); LYMPHOCYTES % (MANUAL) 6 % (20-40); MONOCYTES % (MANUAL) 10 % (2-10); NEUTROPHILS % (MANUAL) 81 % (42-75); PLATELET ESTIMATE ADEQUATE
[2024-12-04] MEDS: BUMETANIDE INJ 6 MG in IV DEXTROSE 5% 36 ML IV ONE (08:41)
[2024-12-04 09:59] LABS: *OCCULT BLOOD STOOL POSITIVE (NEGATIVE)
[2024-12-04] MEDS: HYDROCORTISONE SOD SUCCINATE 100 MG/2 ML VIAL IV SCH (12:24)
[2024-12-05] VITALS (11 sets, daily range): BP systolic 114–142; BP diastolic 29–70; TEMP 94–97.6; O2SAT 92–99
[2024-12-05 10:07] LABS: FREE KAPPA LT CHAINS SERUM 235.6 mg/L (3.3-19.4); KAPPA/LAMBDA RATIO SERUM 1.61 (0.26-1.65)
[2024-12-05] MEDS: PANTOPRAZOLE ORAL SUSPENSION 40 MG SUSPDR.PKT GT SCH (18:19)
[2024-12-06] VITALS (13 sets, daily range): BP systolic 116–163; BP diastolic 56–84; TEMP 94.5–97.7; O2SAT 91–99
[2024-12-06 05:20] LABS: BASOPHILS # (AUTO) 0.1 K/UL (0.0-0.2); BASOPHILS % (AUTO) 0.6 % (0.0-2.0); HEMATOCRIT 29.1 % (36.7-47.1); LYMPHOCYTES # (AUTO) 0.3 K/uL (0.8-4.8); LYMPHOCYTES % (AUTO) 2.2 % (20.5-51.5); MEAN CORPUSCULAR HEMOGLOBIN 36.3 uug (23.8-33.4); MEAN CORPUSCULAR HGB CONC 34 g/dL (32.5-36.3); MONOCYTES # (AUTO) 0.2 K/uL (0.1-1.30); MONOCYTES % (AUTO) 1.7 % (0.0-11.0); NEUTROPHILS # (AUTO) 11.4 K/uL (1.8-8.9); NEUTROPHILS % (AUTO) 95.5 % (38.5-71.5); PLATELET COUNT (AUTO) 224 K/uL (152-348); RED BLOOD CELL COUNT(AUTO) 2.75 MIL/uL (4.06-5.63); RED CELL DISTRIBUTION WIDTH 22.8 % (12.1-16.2); WHITE BLOOD COUNT (AUTO) 11.9 K/uL (3.6-10.2)
[2024-12-06 05:29] LABS: DIFFERENTIAL COMMENT 1
[2024-12-06 05:33] LABS: CARBON DIOXIDE 28 mmol/L (21-32); CHLORIDE 98 mmol/L (98-107); CREATININE 3.7 mg/dL (0.6-1.3); GLUCOSE 144 mg/dL (74-106); MAGNESIUM 2.5 mg/dL (1.8-2.4); PHOSPHOROUS 6.2 mg/dL (2.5-4.9); POTASSIUM 4.2 mmol/L (3.5-5.1); SODIUM SERUM 135 mmol/L (136-145)
[2024-12-06 05:36] LABS: UREA NITROGEN, BLOOD 82 mg/dL (7-18)
[2024-12-06] MEDS: SILVER SULFADIAZINE 1% CREAM 25 GM TUBE TP SCH (09:01)
[2024-12-07] VITALS (7 sets, daily range): BP systolic 154; BP diastolic 85; TEMP 98.3; O2SAT 92–99
[2024-12-07] MEDS: INSULIN REGULAR, HUMAN 1000 UNIT/10 ML VIAL SQ PRN (00:45)
[2024-12-07 07:06] LABS: BASOPHILS % (AUTO) 0.1 % (0.0-2.0); HEMATOCRIT 28.7 % (36.7-47.1); HEMOGLOBIN 9.8 g/dL (12.5-16.3); LYMPHOCYTES # (AUTO) 0.2 K/uL (0.8-4.8); LYMPHOCYTES % (AUTO) 1.5 % (20.5-51.5); MEAN CORPUSCULAR HGB CONC 34 g/dL (32.5-36.3); MEAN CORPUSCULAR VOLUME 105.4 fL (73.0-96.2); MONOCYTES # (AUTO) 0.6 K/uL (0.1-1.30); MONOCYTES % (AUTO) 3.7 % (0.0-11.0); NEUTROPHILS # (AUTO) 15.9 K/uL (1.8-8.9); NEUTROPHILS % (AUTO) 94.7 % (38.5-71.5); PLATELET COUNT (AUTO) 255 K/uL (152-348); RED BLOOD CELL COUNT(AUTO) 2.73 MIL/uL (4.06-5.63); RED CELL DISTRIBUTION WIDTH 22.3 % (12.1-16.2); WHITE BLOOD COUNT (AUTO) 16.7 K/uL (3.6-10.2)
[2024-12-07 07:10] LABS: DIFFERENTIAL COMMENT 1
[2024-12-07 07:27] LABS: CALCIUM 8.3 mg/dL (8.5-10.1); CARBON DIOXIDE 27 mmol/L (21-32); CHLORIDE 97 mmol/L (98-107); CREATININE 4.2 mg/dL (0.6-1.3); GLUCOSE 109 mg/dL (74-106); MAGNESIUM 2.6 mg/dL (1.8-2.4); PHOSPHOROUS 6.5 mg/dL (2.5-4.9); POTASSIUM 4.5 mmol/L (3.5-5.1); SODIUM SERUM 137 mmol/L (136-145)
[2024-12-07 07:30] LABS: UREA NITROGEN, BLOOD 89 mg/dL (7-18)
[2024-12-08] MEDS ORDERED: EPOETIN ALFA-EPBX 10,000 UNIT/ML VIAL SQ SCH (14:00)
== END 2024-12-07 15:05 | disposition hospice, inpatient (51) | DRG 545 ==
LOC: ER 16:05 → TELE3 22:25 → DOU3 22:25 → UNDOADMIN 22:25 → TELE-TD3 23:44 → DOU3 23:44 → TELE3 11-24 10:30 → MEDSURG3 11-26 08:43
PROVIDERS: ADMIT Nurse Practitioner Family; ATTEND Nurse Practitioner Family
PROC: 5A09357 Assistance with Respiratory Ventilation, Less than 24 Consecutive Hours, Continuous Positive Airway Pressure (ICD-10-PCS; principal; 2024-11-23)
PROC: 05HB33Z Insertion of Infusion Device into Right Basilic Vein, Percutaneous Approach (ICD-10-PCS; 2024-11-23)
PROC: 0W9B3ZX Drainage of Left Pleural Cavity, Percutaneous Approach, Diagnostic (ICD-10-PCS; 2024-11-25)
PROC: 30233N1 Transfusion of Nonautologous Red Blood Cells into Peripheral Vein, Percutaneous Approach (ICD-10-PCS; 2024-11-26)
PROC: 0W993ZX Drainage of Right Pleural Cavity, Percutaneous Approach, Diagnostic (ICD-10-PCS; 2024-11-27)
PROC: 05HB33Z Insertion of Infusion Device into Right Basilic Vein, Percutaneous Approach (ICD-10-PCS; 2024-12-02)
DX: E85.9 Amyloidosis, unspecified (principal); E43 Unspecified severe protein-calorie malnutrition; J15.9 Unspecified bacterial pneumonia; I50.33 Acute on chronic diastolic (congestive) heart failure; J96.01 Acute respiratory failure with hypoxia; N17.0 Acute kidney failure with tubular necrosis; J96.02 Acute respiratory failure with hypercapnia; G93.41 Metabolic encephalopathy; C79.31 Secondary malignant neoplasm of brain; C77.0 Secondary and unspecified malignant neoplasm of lymph nodes of head, face and neck; D61.818 Other pancytopenia; J91.8 Pleural effusion in other conditions classified elsewhere; E87.20 Acidosis, unspecified; I13.0 Hypertensive heart and chronic kidney disease with heart failure and stage 1 through stage 4 chronic kidney disease, or unspecified chronic kidney disease; D68.59 Other primary thrombophilia; J98.11 Atelectasis; Z66 Do not resuscitate; I95.89 Other hypotension; Z51.5 Encounter for palliative care; C76.0 Malignant neoplasm of head, face and neck; L89.156 Pressure-induced deep tissue damage of sacral region; R13.10 Dysphagia, unspecified; Z93.1 Gastrostomy status; K21.9 Gastro-esophageal reflux disease without esophagitis; E78.5 Hyperlipidemia, unspecified; E11.22 Type 2 diabetes mellitus with diabetic chronic kidney disease; D63.1 Anemia in chronic kidney disease; E11.65 Type 2 diabetes mellitus with hyperglycemia; E88.09 Other disorders of plasma-protein metabolism, not elsewhere classified; Z68.22 Body mass index [BMI] 22.0-22.9, adult; I25.2 Old myocardial infarction; I35.8 Other nonrheumatic aortic valve disorders; Z78.1 Physical restraint status; N18.9 Chronic kidney disease, unspecified; C61 Malignant neoplasm of prostate; Z79.82 Long term (current) use of aspirin; Z79.899 Other long term (current) drug therapy; F03.90 Unspecified dementia, unspecified severity, without behavioral disturbance, psychotic disturbance, mood disturbance, and anxiety
CPT/HCPCS: 32555; 36415; 36600; 70450; 71045; 71250; 76604; 76770; 76870; 82105; 82378; 82533; 82746; 82784; 82803; 83550; 83605; 83615; 83735; 83970; 83986; 84100; 84153; 84155; 84165; 84403; 84443; 84484; 85018; 85025; 85730; 86038; 86225; 86235; 86334; 86430; 86706; 86803; 86850; 86900; 86901; 86920; 87040; 87070; 87205; 87340; 87806; 88185; 93005; 93307; 94640; 94660; 94760; A4606; A4663; A6209; A6213; C1758; G0378; J0692; J0885; J1650; J1720; J1815; J1938; J2405; J2470; J2916; J3370; J3490; J3590; J7050; P9016; P9047

== ENCOUNTER 2024-12-07 15:22 | Inpatient (IN) | payer OTHER ==
[~2024-12-07] VITALS: Ht 175.3 cm; Wt 68.0 kg
[~2024-12-07 15:22] MED LIST: ACET-2605 GT; ACET325C7 GT; ALBU2.5V13 NEB; AMOX1TAB16 GT; ASCO500C18 GT; ASPI-612 GT; ATOR40TA GT; BISA10SU61 RC; CHOL500062 GT; EPOE40007 SQ; FURO40TA5 GT; GUAI100S9 GT; HEPA500034 SQ; LIDOCAINE PATCH 5% TD; LORA-259 GT; MAGN400O6 GT; MIDO5TAB5 GT; MULT-213 GT; NA P133E RC; ONDA-104 GT; PANT40SU2 GT; SENN8.6T19 GT; ZINC1CAP2 GT
[2024-12-07] MEDS ORDERED: LORAZEPAM 2 MG/1 ML VIAL IV PRN (17:15)
[2024-12-07] MEDS ORDERED: ACETAMINOPHEN 650 MG SUPP.RECT RC PRN (17:30)
[2024-12-07 17:41] VITALS: O2SAT 95
[2024-12-07] MEDS: SCOPOLAMINE PATCH 1 MG/72 HRS PATCH TD SCH (18:10)
[2024-12-07] MEDS: MORPHINE SULFATE PF IV DRIP 100 MG in IV DEXTROSE 5% 96 ML IV PRN (18:15)
[2024-12-07 20:00] VITALS: BP 112/60; TEMP 97.7; O2SAT 90
== END 2024-12-08 23:20 | DRG 951 ==
LOC: MEDSURG3 15:22 → HOSPICE3 15:35
PROVIDERS: ADMIT Nurse Practitioner Acute Care; ATTEND Internal Medicine
DX: Z51.5 Encounter for palliative care (principal); J15.9 Unspecified bacterial pneumonia; J96.01 Acute respiratory failure with hypoxia; E43 Unspecified severe protein-calorie malnutrition; N17.0 Acute kidney failure with tubular necrosis; J96.02 Acute respiratory failure with hypercapnia; I50.33 Acute on chronic diastolic (congestive) heart failure; C77.3 Secondary and unspecified malignant neoplasm of axilla and upper limb lymph nodes; E87.20 Acidosis, unspecified; I13.0 Hypertensive heart and chronic kidney disease with heart failure and stage 1 through stage 4 chronic kidney disease, or unspecified chronic kidney disease; G93.40 Encephalopathy, unspecified; E88.09 Other disorders of plasma-protein metabolism, not elsewhere classified; C61 Malignant neoplasm of prostate; D63.8 Anemia in other chronic diseases classified elsewhere; E78.5 Hyperlipidemia, unspecified; R13.10 Dysphagia, unspecified; N18.9 Chronic kidney disease, unspecified; E11.22 Type 2 diabetes mellitus with diabetic chronic kidney disease; R59.0 Localized enlarged lymph nodes; N50.9 Disorder of male genital organs, unspecified; K21.9 Gastro-esophageal reflux disease without esophagitis; I95.89 Other hypotension; F03.90 Unspecified dementia, unspecified severity, without behavioral disturbance, psychotic disturbance, mood disturbance, and anxiety; Z93.1 Gastrostomy status; Z79.899 Other long term (current) drug therapy; Z79.82 Long term (current) use of aspirin
CPT/HCPCS: G0378; J2274